=== PATIENT | female | born 2000 | race Caucasian/White ===

== ENCOUNTER 2021-01-04 23:45 | Emergency (ER) | payer OTHER ==
[2021-01-05] MEDS ORDERED: KETOROLAC TROMETHAMINE 30 MG/1 ML VIAL IM ONE (00:35)
[2021-01-05] MEDS ORDERED: KETOROLAC TROMETHAMINE 30 MG/1 ML VIAL ONE (00:38)
[2021-01-05 00:40] VITALS: BP 113/83; PULSE 75; TEMP 98.3; BMI 40.7
== END 2021-01-05 02:31 | disposition home or self-care (01) ==
LOC: JER 23:45 → JERFT 23:45
PROC: 3E0233Z Introduction of Anti-inflammatory into Muscle, Percutaneous Approach (ICD-10-PCS; principal; 2021-01-04)
DX: M54.9 Dorsalgia, unspecified (principal)
CPT/HCPCS: 71046-TC-FY; 99284-25

== ENCOUNTER 2021-05-21 23:14 | Emergency (ER) | payer OTHER ==
[2021-05-21 23:28] VITALS: BP 129/83; PULSE 86; TEMP 98.2; BMI 37.8
[2021-05-22] MEDS ORDERED: TETRACAINE 0.5% OPHTH SOLN 2 ML BOTTLE OD ONE (00:26)
[2021-05-22] MEDS ORDERED: FLUORESCEIN NA 1 EA STRIP OD ONE (00:27)
[2021-05-22] MEDS ORDERED: FLUORESCEIN NA 1 EA STRIP ONE (00:30)
[2021-05-22] MEDS ORDERED: TETRACAINE 0.5% OPHTH SOLN 2 ML BOTTLE ONE (00:30)
[2021-05-22] MEDS ORDERED: ERYTHROMYCIN 0.5% OPHTHALMIC OINTMENT 3.5 GM TUBE OS ONE (00:39)
[2021-05-22] MEDS ORDERED: ERYTHROMYCIN 0.5% OPHTHALMIC OINTMENT 3.5 GM TUBE ONE (00:49)
== END 2021-05-22 00:52 | disposition home or self-care (01) ==
LOC: JER 23:14
DX: S05.02XA Injury of conjunctiva and corneal abrasion without foreign body, left eye, initial encounter (principal); Y99.8 Other external cause status
CPT/HCPCS: 99283-25

== ENCOUNTER 2021-09-02 20:34 | Emergency (ER) | payer OTHER ==
[2021-09-02 21:04] VITALS: BMI 35.3
[2021-09-02] MEDS ORDERED: SODIUM CHLORIDE 0.9% 1000 ML INFUS.BAG IV ONE (22:22)
[2021-09-02 22:44] LABS: BASO % 0.6 % (0-2.0); EOS % 0.9 % (0-4.5); HEMATOCRIT 38.4 % (32.4-45.2); HEMOGLOBIN 12.8 GM/dL (10.7-15.3); LYMPH % 35.1 % (8-40); MCHC 33.4 g/dl (32.0-36.0); MEAN CELL VOLUME 83.8 fl (80-96); MEAN PLT VOLUME 8.8 fl (7.5-11.1); MONO % 6.1 % (3.8-10.2); NEUT % 57.3 % (42.8-82.8); PLATELET COUNT 254 10^3/uL (134-434); RBC 4.58 M/mm3 (3.60-5.2); RDW 13.1 % (11.6-15.6); WHITE BLOOD COUNT 8.2 K/mm3 (4.0-10.0)
[2021-09-02 23:08] LABS: CALCIUM 9.5 mg/dL (8.5-10.1)
[2021-09-02 23:09] LABS: ALBUMIN 3.8 g/dl (3.4-5.0); BLOOD UREA NITROGEN 10.2 mg/dL (7-18)
[2021-09-02 23:12] LABS: CREATININE 0.6 mg/dL (0.55-1.3)
[2021-09-02 23:14] LABS: BILIRUBIN,TOTAL 0.6 mg/dL (0.2-1)
[2021-09-02 23:18] LABS: PH,URINE 5.5 (5.0-8.0); URINE APPEARANCE CLEAR; URINE BILIRUBIN NEGATIVE (NEGATIVE); URINE COLOR YELLOW; URINE GLUCOSE (UA) NEGATIVE (NEGATIVE); URINE KETONE 4+ (NEGATIVE); URINE LEUK ESTERASE NEGATIVE (NEGATIVE); URINE NITRITE NEGATIVE (NEGATIVE); URINE PROTEIN TRACE (NEGATIVE)
[2021-09-02 23:20] LABS: HCG,QUALITATIVE URINE Negative
[2021-09-02] MEDS ORDERED: DEXTROSE 5%-NORMAL SALINE 1,000 ML IV SCH (23:30)
[2021-09-03 02:23] VITALS: BP 101/54; PULSE 56; TEMP 97.9
== END 2021-09-03 03:23 | disposition home or self-care (01) ==
LOC: JER 20:34
PROC: 3E0337Z Introduction of Electrolytic and Water Balance Substance into Peripheral Vein, Percutaneous Approach (ICD-10-PCS; principal; 2021-09-02)
DX: R55 Syncope and collapse (principal); E86.0 Dehydration
CPT/HCPCS: 36415; 71275-TC; 74177-TC; 80053; 81003; 82550; 82962; 84484; 84703; 85025; 93005; 93010; 99285-25